=== PATIENT | male | born 1985 | race Caucasian/White ===

== ENCOUNTER 2019-01-08 06:56 | Inpatient (IN) | payer OTHER ==
[~2019-01-08 06:56] MED LIST: CEFAZOLIN SODIUM IN 0.9 % NACL 2 GM/100 ML BAG IV ONE
--- NOTE | 2019-01-08 07:22 | ANESTHESIA ---
Pre-Anesthesia VS, & Labs - Diagnosis L elbow cubital tunnel syndrome - Procedure L cubital tunnel release and transposition Vital Signs: Temp Pulse Resp BP Pulse Ox 36.6 C 86 17 140/89 H 100 01/08/19 07:00 01/08/19 07:00 01/08/19 07:00 01/08/19 07:00 01/08/19 07:00 Height 5 ft 8 in Weight (kg) 68.04 kg - NPO >8 hours Home Medications and Allergies Home Medications: Ambulatory Orders No Known Home Medications 01/05/19 No Known Home Medications 01/05/19 Allergies/Adverse Reactions: Allergies Allergy/AdvReac Type Severity Reaction Status Date / Time No Known Drug Allergies Allergy Verified 01/05/19 13:49 Anes History & Medical History - Anesthetic History Anesthesia Complications: reports: No previous complications Family history of Anesthesia Complications: Denies Family history of Malignant Hyperthermia: Denies - Medical History Cardiovascular: reports: None Pulmonary: reports: None Gastrointestinal: reports: None Urinary: reports: None Musculoskeletal: reports: Other Endocrine/Autoimmune: reports: None Skin: reports: None Exam General: Alert, Oriented x3, Cooperative Dental: WNL Mouth Openin Fingerbreadth Neck Mobility: Normal Mallampati classification: II Thyromental Distance: less than 4 cm Respiratory: Lungs clear, Normal breath sounds, No respiratory distress Cardiovascular: Regular rate Neurological: Normal speech Mental/Cognitive Status: Alert/Oriented X3, Normal for patient Cognitive Status: Within normal limits Plan Anesthesia Type: General Consent for Procedure(s) Verified and Reviewed: Yes Code Status: Attempt Resuscitation ASA classification: 1-Healthy patient Is this case an emergency?: No
[2019-01-08] MEDS ORDERED: LACTATED RINGERS 1,000 ML IV ONE ×2 (07:24→11:49)
[2019-01-08] MEDS ORDERED: LIDOCAINE-MPF 2% 5 ML VIAL IM ONE (08:15)
[2019-01-08] MEDS ORDERED: PROPOFOL 200 MG/20 ML VIAL IVP ONE (08:15)
[2019-01-08] MEDS ORDERED: fentaNYL 100 MCG/2 ML VIAL IVP ONE (08:15)
[2019-01-08] MEDS ORDERED: ACETAMINOPHEN 1,000 MG/100 ML 100 ML IV ONE (08:15)
[2019-01-08] MEDS ORDERED: DEXAMETHASONE 4 MG/ML VIAL IVP ONE (08:15)
[2019-01-08] MEDS ORDERED: KETOROLAC 30 MG/ML VIAL IVP ONE (08:15)
[2019-01-08] MEDS ORDERED: ONDANSETRON 4 MG/2 ML VIAL IVP ONE (08:15)
[2019-01-08] MEDS ORDERED: MIDAZOLAM 2 MG/2 ML VIAL IVP ONE (08:15)
[2019-01-08] MEDS: BUPIVACAINE 0.25% PF 30 ML VIAL ONE ×3 (08:24→11:28)
[2019-01-08] MEDS ORDERED: oxyCODONE 5 MG TABLET PO PRN (12:06)
--- NOTE | 2019-01-08 12:21 | OPERATIVE REPORT ---
Operative Report - General Procedure Date: 01/08/19 Planned Procedure: LeftUlnar nerve decompression and anterior transposition Pre-Op Diagnosis: Left cubital tunnel syndrome Procedure Performed: Left ulnar nerve decompression and anterior intramuscular transposition Post Op Diagnosis: Left cubital tunnel syndrome - Procedure Note Primary Surgeon: LINDA GUAJARDO Secondary Surgeon: TRACY BETHEA Anesthesia Provider: ABY Estimated Blood Loss (mL): 50 - Other Other Information/Narrative: Tourniquet Time: 130 minutes at 250mmHg. Specimen(s) Information: None Complication(s): None Condition: Stable to recovery Indications for Surgery: The patient is a 33-year-old right hand dominant male who was evaluated September 2018 for recent onset severe left elbow pain with radiation down the forearm and into the ulnar 2 digits. 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 He had decreased strength in his FCU as well as dorsal interosseous . He had clinical muscle atrophy of both the hypothenar eminence and first webspace. He had a positive Tinel at the ulnar nerve both proximal and distal to the medial epicondyle. The nerve felt like it subluxed with elbow flexion. Due to the constellation of presenting symptoms, and the reported acuity of onset there was concern for a potential centrally mediated process such as transverse myelitis or multiple sclerosis, as well as metabolic abnormalities. Lab work was unremarkable, and initial work-up consisted of MRI brain and C-spine, (negative for causal etiology), EMG/NCS (ulnar nerve lesion at the left elbow with motor conduction velocity across the elbow decreased to 19 m/s, with positive sharp waves in the FCU at rest), as well as neurology evaluation (Essential Tremor). An MRI of the elbow was subsequently obtained without significant pathologic abnormalities identified in the ulnar nerve. Based on his symptoms, as well as the results of his EMG/NCS, we discussed treatment options for cubital tunnel syndrome. Nonoperative treatment consisting of splinting and elbow pad wear was discussed as well as operative treatment consisting of ulnar nerve decompression with likely anterior transposition. Based on his motor findings, clinical exam and EMG/NCS, I discussed my recommendation for operative treatment to first and foremost prevent further muscle denervation. We discussed that motor recovery following surgery can be variable. Risks of surgery were discussed to include bleeding, infection, postoperative elbow stiffness, failure to relieve symptoms, persistent pain, damage to nerves, vessels, tendons, ligaments, bone and cartilage and anesthesia complications to include medication side effects and allergic reactions and even . After discussion, they wished to proceed. Findings: Significant perineural adhesions approximately 3 cm proximal to the cubital t unnel continuing distally to approximately 1 cm distal to the cubital tunnel. Descriptions of Procedure: The patient was met in the Preoperative Holding Area, at which time preoperative paperwork was confirmed. The left elbow was signed. The patient was then brought to Main Operating Room, placed supine on the Operating Room table. General anesthesia was induced. The operative extremity was then prepped and draped over a hand table in the normal sterile fashion. A sterile well-padded tourniquet was placed on the proximal arm. A surgcial timeout was conducted to confirm the correct patient, correct extremity and correct procedure and to confirm that antibiotics (2gm cefazolin IV) had been administered within 30 minutes of incision time. The operative extremity was then exsanguinated with an Esmarch bandage and tourniquet inflated to 250mmHg. An approximately 14 cm longitudinal incision was made centered posterior to the tip of the medial epicondyle in line with the course of the ulnar nerve and the easily palpable medial intermuscular septum. The skin and dermis were sharply incised, followed by blunt dissection with tenotomy scissors through through a scant layer of subcutaneous fat. Care was taken to identify crossing branches of the medial cutaneous nerves. A large branch was identified which arborized into multiple smaller branches directly over the medial epicondyle. These were identified and protected and neurolysed within the subcutaneous layer to allow for improved excursion, and the main nerve was neurolysed proximally to the level of the basilic vein. The cutaneous nerves were protected with a vessel loop which was then used for gentle retraction to create a moving window. The ulnar nerve was easily visible just posterior to the medial intermuscular septum through the investing fascia. The fascia was carefully opened, and longitudinally divided proximally in line with the ulnar nerve and then distally to Ryan's ligament. Ryan's ligament overlying the cubital tunnel was sharply incised, and the fascial release was continued distally into the leading edge of the FCU fascia. There was an approximately 3 cm segment of dense adhesions between the ulnar nerve and the surrounding tissue in the vicinity of the medial epicondyle that was released. Following release, the elbow was put through range of motion and the nerve was observed to subluxate and perch on the posterior edge of the medial epicondyle with elbow flexion. An anterior flap was developed by dissection just superficial to the flexor pronator fascia. Once the flexor pronator fascia had been exposed, we then marked out our planned fascial incisions utilizing 3 parallel lines (at the leading edge, at the level of the previously released FCU fascia, and equi distant between the 2 other lines. We sharply incised the fascia to create two flaps. Our proximal flap was cut proximally and elevated distally, and our distal flap was cut distally and elevated proximally. Intramuscular fascial septa were identified, isolated and resected, and the muscle was gently elevated from the medial epicondyle (from proximal to distal to prevent denervation) using bipolar electrocautery to create a trough for the anterior transposition. The proximal medial intermuscular septum was identified, dissected free and an approximately 6 cm segment was resected under direct visualization. An Army- Coburn was placed in the proximal incision and the ulnar nerve was released proximally under direct visualization from the overlying fascia. Digital palpation did not demonstrate any compression points. We then turned our attention distally and neurolysed the ulnar nerve within the FCU muscle belly to allow for improved excursion. The ulnar nerve was then gently circumferentially dissected and mobilized. The first branch to the elbow capsule was identified and internally neurolysed to allow improved excursion. We also performed an internal neurolysis of the first motor branch to the FCU. Once this had been performed the ulnar nerve was transposed anterior to the medial epicondyle into the previously created groove. The course of the nerve was checked visually and with palpation, and found to lie flat, without any tenting or kinking. There was no tension on any of the branches. There were no areas identified where the nerve traversed a sharp fascial edge. The tourniquet was let down and manual pressure was held for approximately 5 minutes. We further used bipolar electrocautery for hemostasis. An Army Coburn retractor was placed proximally and the nerve was visualized and examined with digital palpation. There were no additional constrictive points identified. The 2 previously created fascial flaps of the flexor/pronator fascia were then pas sed over the ulnar nerve, but under the cutaneous nerves and secured with 2-0 Ethibond to create a sling to prevent posterior subluxation of the nerve . After this sling had been secured, it was easy to pass a finger underneath the sling with the ulnar nerve. No new points of compression were created. The arm was again taken through full range of motion and the ulnar nerve was noted to be free of tension, with good gliding. The course of the nerve was again palpated. The wound was then copiously irrigated and bipolar electrocautery was again used for hemostasis. The subcutaneous tissue was closed using 2-0 Vicryl in interrupted fashion, followed by a running subcuticular 3-0 monocryl. Mastisol and steristrips were applied and 30mL of 0.25% marcaine plain was infiltrated into the nathalie-incisional soft tissues. The wound was dressed with Xeroform, plain 4x4 gauze, followed by webril, pound cotton, and a gently compressive webril. A posterior plaster splint was applied in approx 60 degrees of flexion and slight pronation. This was overwrapped with webril and an Donovan wrap. The patient was then awakened from general anesthesia without complication, brought to the Post Anesthesia Care for further recovery. Postoperative Plan: 1. The patient will be discharged from the Same Day Surgery Unit when discharge criteria are met. 2. The patient will remain in his splint until follow-up, this will be removed in clinic in 4 days on Saturday 3. Patient can start gentle elbow range of motion once the splint is removed next Saturday, to facilitate nerve gliding. 4. Possible return to full duty in 8-12 weeks.
[2019-01-08] MEDS: HYDROmorphone 0.5 MG/0.5 ML SYRINGE ONE ×2 (12:23→12:30)
[2019-01-08] MEDS: fentaNYL 100 MCG/2 ML VIAL ONE ×2 (12:28→12:35)
[2019-01-08] MEDS ORDERED: oxyCODONE 5 MG TABLET ONE ×2 (12:59→13:16)
[2019-01-08] MEDS ORDERED: ONDANSETRON 4 MG/2 ML VIAL IVP PRN (15:18)
--- NOTE | 2019-01-08 15:41 | PROVIDER PROGRESS NOTE ---
Subjective - Prog Note Date Prog Note Date: 01/08/19 Prog Note Time: 15:36 - Subjective Subjective: 33-year-old male postop day 0 from left ulnar nerve decompression with anterior intramuscular transposition. In the immediate postoperative period he had significant increased pain to the left forearm, elbow and hand. It was marginally responsive to narcotics, but recurred very quickly. He underwent a rescue regional nerve block administered by anesthesia with some improvement in symptoms. His splint was taken down to the base layer of webril and the forearm was palpated. His compartments were soft and compressible, no palpable hematoma or fluid collection was appreciated. A bulky soft splint without plaster was then reapplied to the forearm. During the Splint change he reported a significant increase in his pain from the post block levels. Based on his brittle pain control, to the point of tears, I recommended that he remain in the hospital overnight to allow for more close observation and better pain control. The patient was in agreement with the proposed plan. Objective - Vital Signs/Intake & Output Reviewed Vital Signs: Yes Vital Signs: Vital Signs x48h Temp Pulse Resp BP Pulse Ox 01/08/19 14:30 36.9 C 97 16 135/84 H 99 01/08/19 14:00 36.8 C 98 16 150/94 H 95 01/08/19 13:45 101 H 16 145/92 H 95 01/08/19 13:40 36.8 C 103 H 19 145/94 H 95 01/08/19 13:30 37 C 105 H 20 136/84 H 95 01/08/19 13:15 37 C 110 H 20 148/90 H 96 01/08/19 13:00 36.9 C 87 20 131/80 H 98 01/08/19 12:45 36.9 C 102 H 22 131/86 H 98 01/08/19 12:40 87 20 134/86 H 94 01/08/19 12:35 95 24 134/82 H 97 01/08/19 12:30 108 H 24 138/91 H 96 01/08/19 12:25 108 H 24 135/91 H 97 01/08/19 12:20 37.2 C 108 H 22 133/94 H 97 01/08/19 12:15 37.2 C 104 H 12 139/80 H 95 01/08/19 12:10 37.5 C 103 H 12 134/77 H 95 01/08/19 12:05 105 H 12 136/79 H 98 01/08/19 12:00 37.2 C 104 H 12 96 01/08/19 11:55 103 H 12 136/89 H 98 01/08/19 11:50 105 H 12 134/83 H 98 01/08/19 11:49 37.2 C 110 H 18 145/75 H 98 Intake & Output: Intake & Output 01/05/19 01/06/19 01/07/19 01/08/19 23:59 23:59 23:59 23:59 Intake Total 1400 Output Total 50 Balance 1350 - Objective General Appearance: positive: Moderate distress Extremities: positive: Other (Splint taken down to Base layer of Webril. No strikethrough observed. Forearm compartments soft and compressible. No palpable fluid collection or hematoma appreciated. Additional webril, bulky Florian cotton, webril and an Donovan bandage reapplied for gentle compression. No plaster applied.) Assessment/Plan - Problem List (1) Postoperative pain of extremity Impression: 33-year-old male postop day 0 from a left ulnar nerve decompression and anterior intramuscular transposition. He is having significant postoperative pain, marginally responsive to block as well as narcotics. Splint was taken down in the forearm and distal arm examined, compartments were soft and compressible.. There was no hematoma appreciated. A bulky soft splint was reapplied. [id number] keep for continued observation and availability of IV pain medication. Anticipate that he should be able to discharge tomorrow morning.
[2019-01-08] MEDS: ACETAMINOPHEN 500 MG TABLET PO SCH (16:02)
[2019-01-08] MEDS: HYDROmorphone 0.5 MG/0.5 ML SYRINGE IVP PRN ×2 (16:03→22:01)
[2019-01-08] MEDS ORDERED: SODIUM CHLORIDE FLUSH 0.9% 10 ML SYRINGE ONE ×3 (16:04→22:07)
[2019-01-08] MEDS: ONDANSETRON 4 MG/2 ML VIAL IVP PRN (16:11)
[2019-01-08] MEDS ORDERED: GABAPENTIN 300 MG CAPSULE PO SCH (21:00)
[2019-01-08] MEDS: oxyCODONE 5 MG TABLET PO PRN (22:01)
[2019-01-08] MEDS: IBUPROFEN 800 MG TABLET PO SCH (22:01)
[2019-01-09] MEDS: HYDROmorphone 0.5 MG/0.5 ML SYRINGE IVP PRN ×4 (00:24→07:07)
[2019-01-09] MEDS: ACETAMINOPHEN 500 MG TABLET PO SCH ×3 (00:25→16:19)
[2019-01-09] MEDS: ONDANSETRON 4 MG/2 ML VIAL IVP PRN ×3 (00:32→10:49)
[2019-01-09] MEDS ORDERED: SODIUM CHLORIDE FLUSH 0.9% 10 ML SYRINGE ONE ×6 (02:22→11:11)
[2019-01-09] MEDS: oxyCODONE 5 MG TABLET PO PRN ×2 (02:26→06:26)
[2019-01-09] MEDS: IBUPROFEN 800 MG TABLET PO SCH ×3 (05:03→22:04)
--- NOTE | 2019-01-09 08:05 | PROVIDER PROGRESS NOTE ---
Subjective - Prog Note Date Prog Note Date: 01/09/19 Prog Note Time: 08:03 - Subjective Pt reports feeling: No change Subjective: Postop day 1 status post left ulnar nerve decompression and anterior intramuscular transposition. The patient hSevere pain in the PACU, and received a regional block from anesthesia with moderate improvement in his symptoms. Based on his pain, the patient was kept overnight for observation and pain control. This morning he reports ongoing pain to the medial elbow and down into the forearm, described mostly as a throbbing, which he rates a 5 out of 10, but in tears.He received Neurontin 300 mg last evening, oxycodone 10 mg every 4 hours, and is still requiring Dilaudid for breakthrough pain. He is receiving 1000 mg of acetaminophen and 800 mg of ibuprofen every 8 hours for nonnarcotic pain modulation. Current Medications - Current Medications Current Medications: Medications Summary Acetaminophen (Tylenol) 1,000 mg PO Q8H [facility] Last Admin: 01/09/19 00:25 Dose: 1,000 mg Acetaminophen Assessment Document 01/09/19 00:25 MW (Rec: 01/09/19 00:25 MW [id number]) Pain or Fever Assessment Pain Scale Used 0-10 Pain Intensity (0-10) 7 Gabapentin (Neurontin) 300 mg PO QPM [facility] Last Admin: 01/08/19 22:01 Dose: 300 mg Hydromorphone HCl (Dilaudid Inj Syringe) 0.5 mg IVP Q2H PRN PRN Reason: Breakthrough Pain Last Admin: 01/09/19 07:07 Dose: 0.5 mg Pain Assessment Document 01/09/19 07:07 MW (Rec: 01/09/19 07:08 MW [id number]) Pain Level Pain Scale Used 0-10 Intensity (0-10) 6 Ibuprofen (Motrin) 800 mg PO TID [facility] Last Admin: 01/09/19 05:03 Dose: 800 mg Pain Assessment Document 01/09/19 05:03 MW (Rec: 01/09/19 05:04 MW [id number]) Pain Level Pain Scale Used 0-10 Intensity (0-10) 6 Ondansetron HCl (Zofran Inj) 4 mg IVP Q6HR PRN PRN Reason: Nausea / Vomiting Last Admin: 01/09/19 05:18 Dose: 4 mg Re-Assess: General PRN Medication Reasses Document 01/09/19 05:48 MW (Rec: 01/09/19 07:05 MW [id number]) Reassessment Effective/Ineffective Effective Oxycodone HCl (Roxicodone) 0 mg PO Q4HR PRN PRN Reason: PAIN Last Admin: 01/09/19 06:26 Dose: 10 mg Pain Assessment Document 01/09/19 06:26 MW (Rec: 01/09/19 06:27 MW [id number]) Pain Level Pain Scale Used 0-10 Intensity (0-10) 5 Objective - Vital Signs/Intake & Output Reviewed Vital Signs: Yes Vital Signs: Vital Signs x48h Temp Pulse Resp BP Pulse Ox 01/09/19 08:00 37 C 68 16 132/64 H 98 01/09/19 04:40 36.7 C 57 L 16 122/66 96 01/09/19 00:10 37.0 C 74 16 129/76 95 Intake & Output: Intake & Output 01/06/19 01/07/19 01/08/19 01/09/19 23:59 23:59 23:59 23:59 Intake Total 1850 400 Output Total 50 0 Balance 1800 400 - Objective General Appearance: positive: Moderate distress Eyes Bilateral: positive: Normal inspection, Other (Tearful) Neck: positive: Nml inspection Respiratory: positive: No respiratory distress Extremities: positive: Other (Left upper extremity postoperative splint in place. Good cap refill to all fingers, hand warm and well-perfused. He is able to flex and extend the digits, he reports Return of sensation to the fingers, and numbness and tingling into the ring and small finger, stable from preop.) Neurologic/Psychiatric: positive: Oriented x3 Assessment/Plan - Problem List (1) Postoperative pain of extremity Impression: 33-year-old male postop day 1 status post left anterior intramuscular ulnar nerve transposition, postop course complicated by severe pain, requiring continued IV narcotics. Based on his examination this morning, I plan to uptitrate his oral medications in an attempt to wean him off the IV back pain medications: he may require addition of a long-acting narcotic, however initially my plan would be to increase him to 15 mg of oxycodone every 4 hours. Based on his current pain control, I am not comfortable that he can be safely discharged home as he still requiring IV narcotics. He may require an additional 24-48 hours to optimize his oral regimen before he is safe to discharge. I have discussed him with the hospitalist service.
[2019-01-09] MEDS ORDERED: oxyCODONE 5 MG TABLET PO PRN (08:15)
[2019-01-09] MEDS: ASCORBIC ACID CHEW 500 MG TABLET PO SCH ×2 (08:15→20:46)
[2019-01-09] MEDS ORDERED: HYDROmorphone 0.5 MG/0.5 ML SYRINGE IVP PRN (08:27)
--- NOTE | 2019-01-09 08:27 | CONSULTATION NOTE ---
Referring Provider Name of Referring Provider:: Dr. Edson Sarkar Consult Date: 01/09/19 Chief Complaint - Chief Complaint Chief Complaint: Acute cubital tunnel syndrome History of Present Illness - Admitted From Admitted From:: Direct admit - History Obtained From Records Reviewed: Yes History obtained from: Patient and records Exam Limitations: None - History of Present Illness HPI Comment/Other: This is a pleasant 33-year-old male with status who was a direct admit by Dr. Edson Sarkar who presented with acute cubital tunnel syndrome, Diagnosed with an abnormal EMG of 19 m/s and clinical symptomatology requiring anterior intramuscular transposition and nerve manipulation with left ulnar decompression postop day #1. Patient has received several narcotic and nonnarcotic pain regimen with continued pain 5-6 out of 10 with patient being in "tears". Patient denies chest pain, shortness of breath, nausea vomiting, macopapular rashes, GI or symptoms. Hospitalist consultation has been requested for pain control management and to see if patient will need to stay an additional 24 to 48 hours for adequate pain control prior to discharge. Currently patient is on Neurontin 300 mg p.o. every afternoon, oxycodone 10 to 50 mg p.o. every 4 as needed, IV Dilaudid 0.5 mg IV every 2 hours for breakthrough pain, has received IV Tylenol 1 g q8hrs combined with ibuprofen 800 mg p.o. 3 times daily, Given 1 dose of IV Toradol, and with continued pain to the left forearm. Patient is hemodynamically stable, afebrile and blood pressure somewhat in the high normal range with bradycardia however may be pain induced, patient complaining of nausea in the cessation of throwing up but no actual emesis. History - Past Medical History Cardiovascular: reports: None Respiratory: reports: None Endocrine/Autoimmune: reports: None GI: reports: None : reports: None HEENT: reports: Other Psych: reports: None Musculoskeletal: reports: Other Derm: reports: None MRSA Hx?: No Meds/Allgy - Home Medications Home Medications: Ambulatory Orders Medication Instructions Recorded Confirmed No Known Home Medications 01/05/19 01/05/19 - Allergies Allergies/Adverse Reactions: Allergies Allergy/AdvReac Type Severity Reaction Status Date / Time No Known Drug Allergies Allergy Verified 01/05/19 13:49 Review of Systems - All Other Systems All Other Systems: reports: Reviewed and negative Exam - Vital Signs Vital Signs: Vital Signs x48h Temp Pulse Resp BP Pulse Ox 01/09/19 08:00 37 C 68 16 132/64 H 98 01/09/19 04:40 36.7 C 57 L 16 122/66 96 - Physical Exam General Appearance: positive: No acute distress, Alert, Mild distress Eyes Bilateral: positive: Normal inspection, PERRL, EOMI ENT: positive: ENT inspection nml, Pharynx nml, No signs of dehydration Neck: positive: Nml inspection, Thyroid nml, No JVD, Trachea midline. negative: Thyromegaly Respiratory: positive: Chest non-tender, No respiratory distress, Breath sounds nml Cardiovascular: positive: Regular rate & rhythm, No murmur, No gallop. negative: JVD present Peripheral Pulses: positive: 2+ Abdomen: positive: Non-tender, No organomegaly, Nml bowel sounds, No distention. negative: Tenderness Skin: positive: Color nml, No rash. negative: Cyanosis, Decubitus, Laceration (cm), Puncture wound, Embolic lesions Extremities: positive: Full ROM Neurologic/Psychiatric: positive: Oriented x3, CN's nml (2-12) Conclusion/Plan - Diagnosis Diagnosis: 1. Acute cubital tunnel syndrome to the left arm status post left ulnar decompression with anterior intramuscular transposition and nerve manipulation, postop day #1. 2. Intractable pain unresponsive to narcotic/nonnarcotic regimens. 3. Acute opiate induced nausea without emesis - Plan Plan: Patient currently receiving nonnarcotic as well as narcotic regimen for pain control. Still patient pain is 5-6/10 and unclear of pain threshold however patient is clearly opiate mart as patient does not have a history of chronic pain syndrome or any prior musculoskeletal or neuralgia type syndromes. Medical consultation has been requested for pain control and if patient requires an additional 24 to 48 hours of hospital stay in order to better control patient's pain. I would recommend to uptitrate Neurontin to 300 mg p.o. 3 times daily along with switching narcotic regimen to oxycodone ER 10 mg p.o. twice daily along with spacing the breakthrough pain with Dilaudid 0.5 mg IV every 4 as needed. Eventually wean off Dilaudid and main regimens are to have Neurontin plus oxycodone ER plus NSAIDs for anti-inflammatory properties. Antiemetics and supportive care to continue. Narcotics likely producing nausea. Will place on IV Compazine plus or minus Phenergan to augment Antiemetics, patient already on Zofran. - Lab Results Lab results reviewed: Yes - EKG Results EKG Interpreted Independently: No
[2019-01-09] MEDS: oxyCODONE ER 10 MG TABLET PO SCH ×2 (11:25→20:46)
[2019-01-09] MEDS ORDERED: PROMETHAZINE 25 MG TABLET PO PRN (11:43)
[2019-01-09] MEDS ORDERED: PROCHLORPERAZINE 10 MG/2 ML VIAL IVP PRN (11:43)
[2019-01-09] MEDS ORDERED: SODIUM CHLORIDE FLUSH 0.9% 10 ML SYRINGE IVP PRN (14:10)
[2019-01-09] MEDS: GABAPENTIN 300 MG CAPSULE PO SCH ×2 (14:12→22:03)
[2019-01-10] MEDS: ACETAMINOPHEN 500 MG TABLET PO SCH ×2 (00:10→08:06)
[2019-01-10] MEDS: IBUPROFEN 800 MG TABLET PO SCH (05:15)
[2019-01-10] MEDS: GABAPENTIN 300 MG CAPSULE PO SCH (05:15)
[2019-01-10] MEDS: ASCORBIC ACID CHEW 500 MG TABLET PO SCH (08:06)
[2019-01-10] MEDS: oxyCODONE ER 10 MG TABLET PO SCH (08:06)
[2019-01-10] MEDS ORDERED: POLYETHYLENE GLYCOL 3350 17 GM PACKET PO SCH (09:00)
[2019-01-10] MEDS ORDERED: SENNA 8.6 MG TABLET PO SCH (09:00)
--- NOTE | 2019-01-10 09:00 | PROVIDER PROGRESS NOTE ---
Subjective - General Admit Date: 01/09/19 Procedure Date: 01/08/19 Post Op Days: 2 Procedure Performed: Left ulnar nerve decompression and anterior intramuscular transposition - Review of Systems Wound/Incisions: positive: Dressing dry and intact General: positive: Other (Pain significantly improved over last 24h on new medication regimen). negative: Fever, Chills Pulmonary: negative: Shortness of breath Cardiovascular: negative: Chest pain Gastrointestinal: negative: Nausea (Nausea improved/resolved since medication change) Musculoskeletal: positive: Other (Numbness/tingling in ulnar distribution. Stable since pre-op) Skin: negative: No symptoms Psychiatric: negative: Confusion All Other Systems: positive: Reviewed and negative Objective - Patient Data Vital Signs: Vital Signs x48h Temp Pulse Resp BP Pulse Ox 01/10/19 08:00 36.9 C 68 16 118/67 98 01/10/19 04:28 36.8 C 54 L 16 114/61 95 Intake & Output: Intake and Output Totals x24h 01/08/19 01/09/19 01/10/19 23:59 23:59 23:59 Intake Total 1850 1700 520 Output Total 50 450 250 Balance 1800 1250 270 - Current Medications Current Medications: Current Medications Generic Name Dose Route Start Last Admin Trade Name Freq PRN Reason Stop Dose Admin Acetaminophen 1,000 mg 01/08/19 16:00 01/10/19 08:06 Tylenol PO 1,000 mg Q8H MARIE Administration Ascorbic Acid 500 mg 01/09/19 09:00 01/10/19 08:06 Vitamin C PO 500 mg BID MARIE Administration Gabapentin 300 mg 01/09/19 14:00 01/10/19 05:15 Neurontin PO 300 mg TID MARIE Administration Hydromorphone HCl 0.5 mg 01/09/19 08:27 01/09/19 11:05 Dilaudid Inj Syringe IVP 0.5 mg Q4H PRN Administration Breakthrough Pain Ibuprofen 800 mg 01/08/19 22:00 01/10/19 05:15 Motrin PO 800 mg TID MARIE Administration Ondansetron HCl 4 mg 01/08/19 12:06 01/09/19 10:49 Zofran Inj IVP 4 mg Q6HR PRN Administration Nausea / Vomiting Oxycodone HCl 10 mg 01/09/19 09:00 06/15/19 08:06 Oxycontin PO 10 mg BID MARIE Administration Polyethylene Glycol 17 gm 01/10/19 09:00 01/10/19 08:06 Miralax PO 17 gm DAILY MARIE Administration Prochlorperazine Edisylate 10 mg 01/09/19 11:43 01/09/19 13:37 Compazine Inj IVP 10 mg Q4HR PRN Administration Nausea / Vomiting Senna 8.6 - 17.2 mg 01/10/19 09:00 01/10/19 08:06 Senokot PO 17.2 mg DAILY MARIE Administration Sodium Chloride 10 ml 01/09/19 14:10 01/10/19 08:07 Normal Saline Flush 0.9% IVP 10 ml PRN PRN Administration NEEDED PER PROVIDER ORDERS - Physical Exam Wound/Incisions: positive: Dressing dry and intact General Appearance: positive: No acute distress Eyes Bilateral: positive: Normal inspection Neck: positive: Nml inspection Respiratory: positive: No respiratory distress Skin: positive: Color nml (To distal fingers LUE) Extremities: positive: Other (Left Upper extremity: - Insp: Post-op bulky dressing intact. No strikethrough. Sens: SILT median and SBRN, sensate with parestheisas to ulnar distribution. Motor: Intact AIN, PIN, ULN (FLP, EPL, IO). Can flex and extend fingers. Vasc: Fingers/hand warm and well perfused. Cap refill <2sec.) Neurologic/Psychiatric: positive: Oriented x3, Mood/affect nml. negative: Slurred/abnml speech Impression/Plan - Problem List Problem List: 1. 33yo M POD#2 s/p L ulnar neve decompression and anteriorintramuscular transposition. Pain greatly improved over last 24h, appreciate hospitalist service evaluation and medication modification/recommendations. No IV pain medication since 1100 yesterday. Nausea improved/resolved, no medications required since yesterday. Patient rates current pain 3/10 and manageable on current regimen. Vital signs stable and normal. He feels comfortable discharging. Plan: 1) Discharge to home 2) Medications: Due to the changes in his medications while inpatient, he will need new prescriptions on discharge. I have discussed this with the Hospitalist service, they have graciously agreed to write for them: He already has: Acetaminophen 325mg - Take 3 tab by mouth every 8 hours Zofran 4mg ODT - Dissolve 1 tab in mouth every 8 hours as needed for nausea Docusate Calcium 240mg - 1 cap by mouth daily I am discontinuing: Discontinue: Oxycodone IR 5mg 1-2 tab by mouth every 4 hours Discontinue: Ibuprofen 600mg 1 tab by mouth every 8 hours He needs new prescriptions for: Oxycodone ER 10mg: Take 1 tab by mouth every 12 hours Gabapentin 300mg: Take 1 tab by mouth every 8 hours Ibuprofen 800mg: Take 1 tab by mouth every 8 hours Miralax 3) Follow-up: He has scheduled follow-up at the [facility] on Saturday. LINDA Sarkar MD [phone] (cell) [phone] (clinic)
--- NOTE | 2019-01-10 09:03 | Discharge Plan ---
Discharge Plan Disposition: Home, Self Care Condition: Good Prescriptions: Gabapentin [Neurontin] 300 mg PO TID 7 Days #21 capsule Ibuprofen [Motrin] 800 mg PO TID 7 Days #21 tablet oxyCODONE ER [OxyCONTIN] 10 mg PO BID PRN 7 Days #20 tablet PRN Reason: Pain Polyethylene Glycol 3350 [Miralax] 17 gm PO DAILY PRN 7 Days #14 packet PRN Reason: Constipation Diet: Regular Activity Restrictions: Activity as Tolerated Shower Restrictions: No Driving Restrictions: No Instruction Topics: Cubital Tunnel Syndrome, Post Op Pain Manage Home Meds Additional Instructions or Follow Up instructions: You were admitted for an acute/subacute cubital tunnel syndrome which was diagnosed by your abnormal EMG performed by Dr. Thaddeus Sarkar. You had a p rocedure to decompress the left ulnar nerve as well as an intramuscular transposition procedure which caused severe inflammation and subsequently giving you much pain for which you needed to stay more than 24 hours. The regimen that you are currently on with ibuprofen, Neurontin, and oxycodone ER will be your primary pain management regimen. Please take all pain medications and nonsteroidal anti-inflammatory drugs as prescribed. He will be given 1 week's worth of these medications so please use the oxycodone as needed for extreme pain of more than 6-7 out of 10. You will likely have constipation related to narcotic use. He will also be prescribed MiraLAX to help you with improved bowel movements as the narcotics will cause this. In addition you will follow- up with Dr. Thaddeus Sarkar in approximately 1 week's time. If you would need a refill to your prescription he will go ahead and refill the prescriptions. In the meantime please follow all postoperative instructions provided for you by Dr. Thaddeus Sarkar. No Smoking: If you smoke, Please STOP! Call for help. Follow-up with: Edson Sarkar MD [Primary Care Provider] - 1 Week (Please follow-up with PCP in approximately 1 week's time or as scheduled)
--- NOTE | 2019-01-10 09:12 | DISCHARGE SUMMARY ---
Discharge Summary Admit Date: 01/08/19 Discharge Date: 01/10/19 Discharging Provider: Dr. Varghese Primary Care Provider: Dr. Thaddeus Sarkar Code Status: Attempt Resuscitation Condition at Discharge: Good Discharge Disposition: 01 Home, Self Care - DIAGNOSES Admission Diagnoses: 1. Acute cubital tunnel syndrome to the left arm status post left ulnar dec ompression with anterior intramuscular transposition and nerve manipulation, postop day #1. 2. Intractable pain unresponsive to narcotic/nonnarcotic regimens. 3. Acute opiate induced nausea without emesis Discharge Diagnoses with Status of Each Condition: 1. Acute cubital tunnel syndrome to the left arm status post left ulnar decompression with anterior intramuscular transposition and nerve manipulation, postop day #2, Stable 2. Intractable pain unresponsive to narcotic/nonnarcotic regimens. Improved 3. Acute opiate induced nausea without emesis, Resolved - HPI History of Present Illness: This is a pleasant 33-year-old male with status who was a direct admit by Dr. Edson Sarkar who presented with acute cubital tunnel syndrome, Diagnosed with an abnormal EMG of 19 m/s and clinical symptomatology requiring anterior intramuscular transposition and nerve manipulation with left ulnar decompression postop day #1. Patient has received several narcotic and nonnarcotic pain regimen with continued pain 5-6 out of 10 with patient being in "tears". Patient denies chest pain, shortness of breath, nausea vomiting, macopapular rashes, GI or symptoms. Hospitalist consultation has been requested for pain control management and to see if patient will need to stay an additional 24 to 48 hours for adequate pain control prior to discharge. Currently patient is on Neurontin 300 mg p.o. every afternoon, oxycodone 10 to 50 mg p.o. every 4 as needed, IV Dilaudid 0.5 mg IV every 2 hours for breakthrough pain, has received IV Tylenol 1 g q8hrs combined with ibuprofen 800 mg p.o. 3 times daily, Given 1 dose of IV Toradol, and with continued pain to the left forearm. Patient is hemodynamically stable, afebrile and blood pressure somewhat in the high normal range with bradycardia however may be pain induced, patient complaining of nausea in the cessation of throwing up but no actual emesis. - CONSULTS | PROCEDURES Consultations: Hospitalist service Procedures: Left ulnar decompression with intramuscular transposition, Postop day #2 - HOSPITAL COURSE Hospital Course: Mr. Jaylen Bauman is a pleasant 33-year-old male who was admitted by Dr. Edson Sarkar, who presented with an acute cubital tunnel syndrome diagnosed with an abnormal hamate EMG of 19 m per square and clinical symptomatology requiring anterior intramuscular transposition as well as left ulnar decompression. Hospitalist service was initially consulted for evaluation of pain management. Patient was subsequently needing more than 24-hour stay due to pain management requiring IV Dilaudid, IV Tylenol, ibuprofen, neurontin, and increasing amounts of oxycodone IR every 3-4 hours. Patient had been complaining of nausea on this regimen and was in "tears" with 6-7/10 pain with no related shortness of breath, some diaphoresis, without GI or symptoms. There was no maculopapular rashes, and patient did not have any evidence of compartmental syndrome postoperatively. Patient subsequently was placed on a acceptable pain management regimen to include ibuprofen 800 mg p.o. 3 times daily [id number], Neurontin was uptitrated to 300 mg p.o. 3 times daily, oxycodone IR was discontinued as well as IV Dilaudid spaced out to every 6, oxycodone ER 10 mg p.o. twice daily was instituted. Patient was cleared by orthopedic surgeon and would be followed up as an outpatient in about 1 week's time. Patient's pain is not controlled and he was hemodynamically stable, afebrile upon discharge. - ALLERGIES Allergies/Adverse Reactions: Allergies Allergy/AdvReac Type Severity Reaction Status Date / Time No Known Drug Allergies Allergy Verified 01/05/19 13:49 - MEDICATIONS Home Medications: Ambulatory Orders Medication Instructions Recorded Confirmed Gabapentin [Neurontin] 300 mg PO TID 7 Days #21 capsule 01/10/19 Ibuprofen [Motrin] 800 mg PO TID 7 Days #21 tablet 01/10/19 Polyethylene Glycol 3350 [Miralax] 17 gm PO DAILY PRN 7 Days #14 01/10/19 packet oxyCODONE ER [OxyCONTIN] 10 mg PO BID PRN 7 Days #20 tablet 01/10/19 - PHYSICAL EXAM AT DISCHARGE General Appearance: positive: No acute distress, Alert Eyes Bilateral: positive: Normal inspection, PERRL, EOMI ENT: positive: ENT inspection nml, Pharynx nml, No signs of dehydration Neck: positive: Nml inspection, Thyroid nml, No JVD, Trachea midline Respiratory: positive: Chest non-tender, No respiratory distress, Breath sounds nml Cardiovascular: positive: Regular rate & rhythm, No murmur, No gallop Peripheral Pulses: positive: 2+ Abdomen: positive: Non-tender, No organomegaly, Nml bowel sounds, No distention. negative: Tenderness Skin: positive: Color nml, No rash, Warm, Other (Patient with left mackenzie wrap bandages with no cyanotic digits) Extremities: positive: Nml appearance (Slightly addendum to his left upper extremity with surgical site clean dry and intact). negative: Joint swelling Neurologic/Psychiatric: positive: Oriented x3 - FOLLOW UP Follow Up: To follow-up with PCP in 1 or 2 weeks. - TIME SPENT Time Spent in Discharge (Minutes): 35
[2019-01-10 11:50] VITALS: BP 120/68
== END 2019-01-10 13:30 | disposition home or self-care (01) | DRG 941 ==
LOC: SDS 06:56 → MS2 15:51 → SDS 01-09 11:41 → MS2 01-09 11:42
PROVIDERS: ADMIT Family Medicine; ATTEND Family Medicine
PROC: 01N40ZZ Release Ulnar Nerve, Open Approach (ICD-10-PCS; principal; 2019-01-09)
PROC: 01S40ZZ Reposition Ulnar Nerve, Open Approach (ICD-10-PCS; 2019-01-09)
DX: G89.18 Other acute postprocedural pain (principal); G56.22 Lesion of ulnar nerve, left upper limb; R11.0 Nausea; T40.605A Adverse effect of unspecified narcotics, initial encounter; Y92.230 Patient room in hospital as the place of occurrence of the external cause
CPT/HCPCS: 64718; A9270; J0131; J0690; J1170; J7120; Q0169

== ENCOUNTER 2019-02-12 13:13 | Emergency (ER) | payer OTHER ==
--- NOTE | 2019-02-12 13:32 | ED Physician Documentation ---
History of Present Illness - Stated complaint Stated Complaint: ANXIETY - Chief complaint Chief Complaint: General - History obtained from History obtained from: Patient, Family - History of Present Illness Timing: Today Pain level max: 0 Pain level now: 0 - Additonal information Additional information: 33-year-old male states that he was at work today when he had a panic attack. [place] himself breathing fast, heart racing and tingling in his hands. This lasted approximately 10 minutes. He states that he feels better now. Is not on any medications for this. Patient is not suicidal or homicidal. Review of Systems Constitutional: denies: Fever, Chills Nose: denies: Rhinorrhea / runny nose, Congestion Throat: denies: Sore throat Cardiac: denies: Chest pain / pressure Respiratory: denies: Cough GI: denies: Vomiting, Diarrhea Skin: denies: Rash Musculoskeletal: denies: Neck pain, Back pain Neurologic: denies: Headache PD PAST MEDICAL HISTORY - Past Medical History Cardiovascular: None Respiratory: None Endocrine/Autoimmune: None GI: None : None HEENT: Other Psych: None Musculoskeletal: Other Derm: None - Present Medications Home Medications: Ambulatory Orders Medication Instructions Recorded Confirmed Gabapentin [Neurontin] 300 mg PO TID 7 Days #21 capsule 01/10/19 Ibuprofen [Motrin] 800 mg PO TID 7 Days #21 tablet 01/10/19 Polyethylene Glycol 3350 [Miralax] 17 gm PO DAILY PRN 7 Days #14 01/10/19 packet oxyCODONE ER [OxyCONTIN] 10 mg PO BID PRN 7 Days #20 tablet 01/10/19 - Allergies Allergies/Adverse Reactions: Allergies Allergy/AdvReac Type Severity Reaction Status Date / Time No Known Drug Allergies Allergy Verified 01/05/19 13:49 PD ED PE NORMAL - Vitals Vital signs reviewed: Yes - General General: Alert and oriented X 3, No acute distress, Well developed/nourished - HEENT HEENT: Moist mucous membranes - Neck Neck: Supple, no meningeal sign - Cardiac Cardiac: RRR, No murmur, Strong equal pulses - Respiratory Respiratory: No respiratory distress, Clear bilaterally - Abdomen Abdomen: Soft, Non tender, Non distended - Derm Derm: Warm and dry - Extremities Extremities: No edema, No calf tenderness / cord - Neuro Neuro: Alert and oriented X 3, lead handler 2-12 intact, No motor deficit, No sensory deficit, Normal speech Eye Opening: Spontaneous Motor: Obeys Commands Verbal: Oriented GCS Score: 15 - Psych Psych: Normal mood, Normal affect Results - Vitals Vitals: Vital Signs - 24 hr 02/12/19 02/12/19 13:14 14:25 Temperature 37.1 C 36.4 C L Heart Rate 81 68 Respiratory 16 20 Rate Blood Pressure 128/88 H 136/84 H O2 Saturation 100 100 Oxygen O2 Source Room air - EKG (time done) 1356 Rate: Rate (enter#) (78) Rhythm: NSR [place]: Normal Intervals: Normal MD QRS: Normal Ischemia: Normal ST segments - Labs Labs: Laboratory Tests 02/12/19 13:41 POC Whole Bld Glucose 101 H PD MEDICAL DECISION MAKING - ED course Complexity details: reviewed results, re-evaluated patient, considered differential, d/w patient ED course: 33-year-old male appears to have had a panic attack today. He is well- appearing, nontoxic. Afebrile. Normal blood sugar. Normal EKG. Asymptomatic now. We will follow-up with his doctor for further care. Patient counseled regarding signs and symptoms for which I believe and urgent re-evaluation would be necessary. Patient with good understanding of and agreement to plan and is comfortable going home at this time This document was made in part using voice recognition software. While efforts are made to proofread this document, sound alike and grammatical errors may occur. Patient is not suicidal, homicidal or having hallucinations. Departure - Departure Disposition: 01 Home, Self Care Clinical Impression: Panic attack Condition: Good Instructions: ED Panic Attack Follow-Up: your,doctor in 1 week [Other] Comments: Follow-up with your doctor for further care. Return if you worsen. Discharge Date/Time: 02/12/19 14:25
[2019-02-12 14:26] VITALS: BP 136/84
== END 2019-02-12 14:25 | disposition home or self-care (01) ==
LOC: ED 13:13
DX: F41.0 Panic disorder [episodic paroxysmal anxiety] (principal)
CPT/HCPCS: 93005; 99283; 99284

== ENCOUNTER 2019-06-05 09:33 | Emergency (ER) | payer OTHER ==
--- NOTE | 2019-06-05 10:03 | ED Physician Documentation ---
PD HPI ABD PAIN - Stated complaint Stated Complaint: ABD PX - Chief complaint Chief Complaint: Abd Pain - History obtained from History obtained from: Patient - History of Present Illness Timing - onset: Yesterday Timing - duration: Days (2) Timing - details: Abrupt onset Pain level max: 5 Pain level now: 3 Quality: Pain Location: Epigastric Radiation: Chest Associated symptoms: Nausea. No: Fever, Vomiting, Diarrhea, Dysuria, Hematuria, Dizzy Recently seen: Not recently seen - Additional information Additional information: There is a 34-year-old presents with complaints that he woke up yesterday morning with a little bit of stomach "upset". He said he did not think that much of it he thought he might just eaten something that made him to feel bad but now there is a constant pain that mostly around the periumbilical region but also more generalized and it made him feel short of breath. The pain is currently a 3 out of 10 yesterday was up to 4-5 out of 10. He tried taking Tums without relief. He is been nauseous but no vomiting or diarrhea. Denies any fever. No dysuria but he has had a minimal cough that he attributed to getting a flu shot last week. Patient has not drink any alcohol since November of this year. He has had no abdominal surgeries. He has not been around anyone has been ill or eaten anything for sure that he thinks may made him sick. He is in the [place]. Review of Systems Constitutional: denies: Fever Ears: denies: Ear pain Nose: denies: Congestion Throat: denies: Sore throat Cardiac: denies: Chest pain / pressure Respiratory: reports: Dyspnea, Cough (Minimal) GI: reports: Nausea. denies: Vomiting, Diarrhea : denies: Dysuria, Frequency Skin: denies: Rash Neurologic: denies: Generalized weakness, Syncope PD PAST MEDICAL HISTORY - Past Medical History Cardiovascular: None Respiratory: None Endocrine/Autoimmune: None GI: None : None HEENT: Other Psych: None Musculoskeletal: Other Derm: None - Present Medications Home Medications: Ambulatory Orders Medication Instructions Recorded Confirmed Gabapentin [Neurontin] 300 mg PO TID 7 Days #21 capsule 01/10/19 Ibuprofen [Motrin] 800 mg PO TID 7 Days #21 tablet 01/10/19 - Allergies Allergies/Adverse Reactions: Allergies Allergy/AdvReac Type Severity Reaction Status Date / Time No Known Drug Allergies Allergy Verified 06/05/19 09:42 PD ED PE NORMAL - Vitals Vital signs reviewed: Yes - General General: Alert and oriented X 3, No acute distress, Well developed/nourished, Other (Thin pleasant 34-year-old man) - HEENT HEENT: Atraumatic, Moist mucous membranes, Other (No scleral icterus) - Neck Neck: Thyroid normal - Cardiac Cardiac: RRR, No murmur - Respiratory Respiratory: No respiratory distress - Abdomen Abdomen: Normal bowel sounds, Soft, Non distended, No organomegaly, Other (Tender in the right upper and lower quadrants with guarding) - Derm Derm: Normal color, Warm and dry, No rash - Extremities Extremities: No edema - Neuro Neuro: Alert and oriented X 3, No motor deficit, No sensory deficit, Normal speech - Psych Psych: Normal mood, Normal affect Results - Vitals Vitals: Vital Signs - 24 hr 06/05/19 06/05/19 06/05/19 09:41 10:31 11:26 Temperature 36.8 C Heart Rate 76 81 80 Respiratory 16 18 18 Rate Blood Pressure 148/89 H 116/83 H 121/82 H O2 Saturation 99 99 100 Oxygen O2 Source Room air - Labs Labs: Laboratory Tests 06/05/19 06/05/19 06/05/19 10:13 10:14 10:14 WBC 4.4 L RBC 4.22 L Hgb 13.9 L Hct 39.2 L MCV 92.9 MCH 32.9 H MCHC 35.5 RDW 12.5 Plt Count 281 MPV 9.0 Neut # (Auto) 2.8 Lymph # (Auto) 1.0 L [place] # (Auto) 0.4 Eos # (Auto) 0.1 Baso # (Auto) 0.0 Absolute Nucleated RBC 0.00 Nucleated RBC % 0.0 Sodium 140 Potassium 4.1 Chloride 101 Carbon Dioxide 31 Anion Gap 8.0 BUN 19 Creatinine 0.9 Estimated GFR (MDRD) 98 Glucose 102 H Calcium 9.5 Total Bilirubin 0.9 AST 16 ALT 14 Alkaline Phosphatase 48 Total Protein 7.2 Albumin 4.5 Globulin 2.7 Albumin/Globulin Ratio 1.7 Lipase 27 Urine Color YELLOW Urine Clarity CLEAR Urine pH 7.5 Ur Specific [place] 1.015 Urine Protein NEGATIVE Urine Glucose (UA) NEGATIVE Urine Ketones NEGATIVE Urine Occult Blood NEGATIVE Urine Nitrite NEGATIVE Urine Bilirubin NEGATIVE Urine Urobilinogen 0.2 (NORMAL) Ur Leukocyte Esterase NEGATIVE Ur Microscopic Review NOT INDICATED Urine Culture Comments NOT INDICATED PD MEDICAL DECISION MAKING - ED course Complexity details: reviewed results, re-evaluated patient ED course: 1130: Patient had 4 morphine and 4 of Zofran IV. His white blood cell count is actually low at 4.4. Lipase is normal urine is negative. He still has some tenderness in the right lower quadrant with some guarding. I ordered CT scan abdomen pelvis with IV contrast. 1314: Ct neg for appendicitis. Results discussed with the patient. He is to be discharged with instructions to eat a bland diet. [place] the pain continues. Departure - Departure Disposition: Home, Self Care Clinical Impression: Abdominal pain Qualifiers: Abdominal location: right lower quadrant Qualified Code(s): R10.31 - Right lower quadrant pain Condition: Good Instructions: ED Abdominal Pain Unkn Cause Follow-Up: LIZA Gilbert [Provider Group] Comments: Eat a BRAT (bananas, rice, applesauce and toast) for the next 24 hours. Drink lots of water. Only Tylenol or ibuprofen if needed for pain. [place] if your pain continues over another 48 hours. Return if you have fever, or vomiting and cannot keep anything down or other problems arise.
[2019-06-05 10:22] LABS: BASOPHILS % (AUTO) 0.5 %; EOSINOPHILS # (AUTO) 0.1 10^3/uL (0.0-0.7); EOSINOPHILS % (AUTO) 1.4 %; HGB - HEMOGLOBIN 13.9 g/dL (14.0-18.0); LYMPHOCYTES % (AUTO) 23.5 %; MEAN CORPUSCULAR HEMOGLOBIN 32.9 pg (27.0-31.0); MEAN CORPUSCULAR HGB CONC 35.5 g/dL (32.0-36.0); MEAN CORPUSCULAR VOLUME 92.9 fL (80.0-94.0); MONOCYTES # (AUTO) 0.4 10^3/uL (0.0-1.0); MONOCYTES % (AUTO) 9.6 %; NEUTROPHILS # (AUTO) 2.8 10^3/uL (1.5-6.6); NEUTROPHILS % (AUTO) 64.8 %; PLT - PLATELET COUNT 281 10^3/uL (130-450); RED BLOOD COUNT 4.22 10^6/uL (4.70-6.10); RED CELL DISTRIBUTION WIDTH 12.5 % (12.0-15.0); WHITE BLOOD COUNT 4.4 x10^3/uL (4.8-10.8)
[2019-06-05] MEDS ORDERED: ONDANSETRON 4 MG/2 ML VIAL IVP STA (10:22)
[2019-06-05] MEDS ORDERED: MORPHINE 2 MG/ML CARPUJECT IVP STA (10:22)
[2019-06-05 10:35] LABS: ALBUMIN 4.5 g/dL (3.2-5.5); ALBUMIN/GLOBULIN RATIO 1.7 (1.0-2.2); BILIRUBIN,TOTAL 0.9 mg/dL (0.2-1.0); CALCIUM 9.5 mg/dL (8.5-10.3); CREATININE 0.9 mg/dL (0.6-1.2); TOTAL PROTEIN 7.2 g/dL (6.7-8.2)
[2019-06-05 10:45] LABS: BILIRUBIN,URINE NEGATIVE (NEGATIVE); GLUCOSE, URINE (UA) NEGATIVE (NEGATIVE); KETONES,URINE (UA) NEGATIVE (NEGATIVE); LEUKOCYTE ESTERASE, URINE NEGATIVE (NEGATIVE); NITRITE,URINE NEGATIVE (NEGATIVE); OCCULT BLOOD,URINE NEGATIVE (NEGATIVE); PH,URINE 7.5 PH (5.0-7.5); PROTEIN,URINE NEGATIVE (NEGATIVE); UROBILINOGEN,URINE 0.2 (NORMAL) E.U./dL (NORMAL)
[2019-06-05 10:49] LABS: CLARITY,URINE CLEAR (CLEAR)
[2019-06-05] MEDS ORDERED: IOVERSOL 320 100 ML VIAL IVP ONE ×2 (11:43→14:09)
--- NOTE | 2019-06-05 12:30 | CT Report ---
Reason: RLQ pain Procedure Date: 06/05/2019 Accession Number: [id number] / [id number] Procedure: CT - Abdomen/Pelvis W CPT Code: Final Report FULL RESULT: EXAM: CT ABDOMEN AND PELVIS WITH CONTRAST EXAM DATE: 06/05/2019 11:50 AM. CLINICAL HISTORY: RLQ pain for 24 hours in a 34-year-old male. COMPARISONS: None. TECHNIQUE: Emergent axial helical CT imaging was performed through the abdomen and pelvis. IV contrast: OPTI 320 90 mL. Enteric contrast: No. Reconstructions: Coronal and sagittal. In accordance with CT protocol optimization, one or more of the following dose reduction techniques were utilized for this exam: automated exposure control, adjustment of mA and/or KV based on patient size, or use of iterative reconstructive technique. FINDINGS: Lung Bases: Unremarkable. Liver: Normal. No masses. Gallbladder/Bile Ducts: Partially collapsed, likely secondary to non-NPO status. No gallstones, wall thickening or dilated bile ducts. Spleen: Normal. Pancreas: Normal. Adrenal Glands: Normal. Kidneys: Normal. No solid masses or hydronephrosis. Small benign-appearing 4.5 mm cyst inferior pole right kidney. Peritoneal Cavity/Bowel: Normal. No free fluid, free air or adenopathy. No masses or acute inflammatory process. The appendix is well visualized and normal. Pelvic Organs: Normal. The bladder and visualized pelvic organs are within normal limits. Vasculature: No aneurysms or other significant abnormality. Bones: Normal. Other: None. IMPRESSION: Normal contrast enhanced abdomen and pelvic CT scan. No CT findings suggesting appendicitis, gallstones or other abnormality. [facility]
[2019-06-05 13:29] VITALS: BP 129/77
== END 2019-06-05 13:29 | disposition home or self-care (01) ==
LOC: ED 09:33
DX: R10.31 Right lower quadrant pain (principal); R11.0 Nausea
CPT/HCPCS: 36415; 74177; 80053; 81003; 83690; 85025; 96374; 99283; 99284; Q9967; 81001; 87086

== ENCOUNTER 2020-04-16 08:10 | Emergency (ER) | payer OTHER ==
--- NOTE | 2020-04-16 08:45 | ED Physician Documentation ---
PD HPI UPPER EXT INJURY - Stated complaint Stated Complaint: L SHOULDER/ARM PX - Chief complaint Chief Complaint: Ext Problem - History obtained from History obtained from: Patient - History of Present Illness Location: Left, Shoulder, Elbow Type of injury: No: Fall, Twist (he is not aware of acute injury nor heavy lifting per se. Noted onset of left elbow and shoulder pain the past couple of days. This has caused his essential tremor to be worse in that arm particularly.), Blunt / blow Where injury occurred: Work Timing - onset: How many days ago (couple) Timing - duration: Days (since yesterday) Timing - details: Gradual onset, Still present Worsened by: Moving (hurts for moving left elbow and shoulder with feeling of pain upper scapular area, side of neck and down to left elbow (or more so feeling like up from left elbow, per patient). 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 No complications from that.). No: Palpating Associated symptoms: No: Weakness, Numbness Similar symptoms before: No diagnosis (has had pains at elbow intermittently. Current pain is much worse and persistent. Has not had the shoulder/scapular pains previously.) Recently seen: Not recently seen Review of Systems Constitutional: denies: Fever, Chills Nose: denies: Rhinorrhea / runny nose, Congestion Throat: denies: Sore throat Respiratory: denies: Cough Skin: denies: Rash, Lesions Neurologic: reports: Numbness (feeling numbness little finger at times. No edema nor swelling in hand/fingers. Denies discoloration of fingers.). denies: Focal weakness PD PAST MEDICAL HISTORY - Past Medical History Past Medical History: Yes Cardiovascular: None Respiratory: None Neuro: Other Endocrine/Autoimmune: None GI: None : None HEENT: Other Psych: None Musculoskeletal: Other Derm: None - Past Surgical History Past Surgical History: Yes - Present Medications Home Medications: Ambulatory Orders Medication Instructions Recorded Confirmed Gabapentin [Neurontin] 300 mg PO TID 7 Days #21 capsule 01/10/19 Ibuprofen [Motrin] 800 mg PO TID 7 Days #21 tablet 01/10/19 Hydrocodone/Acetaminophen [[place] 1 each PO Q6H PRN #15 tablet 04/16/20 5-325 Tablet] Naproxen 375 mg PO TID #30 tablet 04/16/20 Tizanidine HCl 4 mg PO TID PRN #25 capsule 04/16/20 - Allergies Allergies/Adverse Reactions: Allergies Allergy/AdvReac Type Severity Reaction Status Date / Time No Known Drug Allergies Allergy Verified 06/05/19 09:42 - Social History Does the pt smoke?: Yes Smoking Status: Current every day smoker Does the pt drink ETOH?: No Does the pt have substance abuse?: No - Immunizations Immunizations are current?: Yes PD ED PE NORMAL - Vitals Vital signs reviewed: Yes - General General: Alert and oriented X 3, No acute distress, Well developed/nourished - Neck Neck: Supple, no meningeal sign, No bony TTP (but has some tenderness left lateral muscles and to the suprascapular area. No redness nor rash. ), No adenopathy - Cardiac Cardiac: RRR, No murmur - Respiratory Respiratory: Clear bilaterally - Derm Derm: Normal color, Warm and dry - Extremities Extremities: Other (left shoulder itself is not tendcer. Able to move shoulder around (cross chest, behind back and abduction over shoulder height) without pain, so does not seem rotator cuff. Elbow medial with healed scar. No effusion. Locally tender though. ) Results - Vitals Vitals: Vital Signs - 24 hr 04/16/20 04/16/20 08:18 09:57 Temperature 36.3 C L 36.6 C Heart Rate 72 72 Respiratory 16 15 Rate Blood Pressure 130/96 H 128/94 H O2 Saturation 99 99 Oxygen O2 Source Room air - Rads (name of study) left elbow Radiology: Prelim report reviewed (no acute process), See rad report Departure - Departure Disposition: 01 Home, Self Care Clinical Impression: Left arm pain, Essential tremor Condition: Stable Record reviewed to determine appropriate education?: Yes Instructions: ED Strain Muscle Ext Follow-Up: Robert Pressley MD [Primary Care Provider] - Prescriptions: Naproxen 375 mg PO TID #30 tablet Hydrocodone/Acetaminophen [[place] 5-325 Tablet] 1 each PO Q6H PRN #15 tablet PRN Reason: Pain Tizanidine HCl 4 mg PO TID PRN #25 capsule PRN Reason: Spasms Comments: X-ray appears normal. I presume there is some muscle or nerve irritation through the elbow or shoulder. There does seem some muscular involvement in the scapular area. Use a sling for reduced motion and comfort through the day for the next 3 to 4 days. Progress use of the elbow and shoulder as tolerated. Anti-inflammatories with naproxen 2-3 times daily. Add tizanidine muscle relaxant. To that add Tylenol or hydrocodone as needed for pain. Follow-up with your primary care and orthopedics early this coming week, call Saturday for an appointment. Forms: Activity restrictions Discharge Date/Time: 04/16/20 10:27
[2020-04-16] MEDS ORDERED: methocarbamoL 500 MG TABLET PO STA (09:34)
[2020-04-16] MEDS ORDERED: ACETAMINOPHEN 325 MG TABLET PO STA (09:34)
[2020-04-16] MEDS ORDERED: KETOROLAC 30 MG/ML VIAL IM STA (09:35)
[2020-04-16 09:58] VITALS: BP 128/94
--- NOTE | 2020-04-16 10:01 | XRAY Report ---
PROCEDURE: Elbow 3 View LT INDICATIONS: Elbow pain last night; no injury; prior elbow surg TECHNIQUE: 3 views of the elbow were acquired. COMPARISON: None FINDINGS: Bones: No acute fractures or dislocations. There is trace osteophytosis of the trochlea with mild e lbow joint space narrowing. No suspicious bony lesions. Soft tissues: No elbow joint effusion. No suspicious soft tissue calcifications. IMPRESSION: No acute finding. Mild degenerative changes. Reviewed by: Tio Alarcon MD on 04/16/2020 10:00 AM PDT Approved by: Tio Alarcon MD on 04/16/2020 10:00 AM PDT Station ID: [id number]
== END 2020-04-16 10:27 | disposition home or self-care (01) ==
LOC: ED 08:10
DX: M79.602 Pain in left arm (principal); G25.0 Essential tremor; F17.200 Nicotine dependence, unspecified, uncomplicated
CPT/HCPCS: 73080; 96372; 99283; 99284; A9270

== ENCOUNTER 2020-05-02 08:59 | Outpatient (CLI) | payer OTHER ==
--- NOTE | 2020-05-02 11:03 | MRI Report ---
PROCEDURE: Cervical Spine W/O INDICATIONS: CERVICAL ROOT DISORDERS TECHNIQUE: Noncontrast sagittal T1 spin echo and T2 fast spin echo, sagittal STIR, foraminal oblique sagittal T2 fast spin echo, and axial gradient echo and T2 fast spin echo through the cervical spine. COMPARISON: Correlation is made with prior cervical spine CT, 04/24/2020 FINDINGS: Image quality: Motion artifact is noted. Alignment and Curvature: There is normal bony alignment. Bone Marrow: Marrow demonstrates normal overall signal. Spinal Cord: Visualized spinal cord has normal size and signal. No cerebellar tonsillar herniation. Paraspinous Soft Tissues: No paravertebral masses. Prevertebral soft tissues are normal in thicknes s. C2-C3: The disc height is well-preserved. There is loss of disc signal seen. Mild disc osteophyte complex is seen, which is eccentric to the left side. Mild facet hypertrophy is seen. There is moder ate left-sided and no significant right-sided neuroforaminal narrowing seen. The central canal is wi salma patent. C3-C4: The disc height is well-preserved. There is loss of disc signal seen. Mild to moderate disc osteophyte complex is seen, which is eccentric to the left. Moderate facet hypertrophy is seen, left worse than right. There is moderate to severe bilateral neuroforaminal narrowing seen, left worse rula n right. Mild central canal narrowing is seen. C4-C5: The disc height is well-preserved. There is loss of disc signal seen. Mild disc osteophyte complex is seen, which is eccentric to the right. There is moderate bilateral facet hypertrophy seen. There is moderate bilateral neuroforaminal narrowing seen. No significant central canal narrowing is seen. C5-C6: The disc height is well-preserved. There is loss of disc signal seen. Mild disc osteophyte c omplex is seen. Mild facet hypertrophy is seen. Mild to moderate facet hypertrophy is seen. Mild bilateral neural foraminal narrowing is seen. No significant central canal narrowing is seen. C6-C7: Mild loss of disc height and disc signal are seen. Moderate disc osteophyte complex is seen. Mild to moderate bilateral facet hypertrophy is seen. There is moderate right-sided and moderate to severe left-sided neuroforaminal narrowing seen. Mild central canal narrowing is seen. C7-T1: No significant abnormality is seen. IMPRESSION: Multiple levels of cervical spine degenerative change are seen, which are most prominent at the C6-C7 level. Reviewed by: Ronnie Desir MD on 05/02/2020 10:02 AM MILES Approved by: Ronnie Desir MD on 05/02/2020 10:02 AM MILES Station ID: [id number]
== END 2020-05-02 09:00 | disposition home or self-care (01) ==
LOC: DI 08:59
PROVIDERS: ATTEND Nurse Practitioner Family
DX: M47.812 Spondylosis without myelopathy or radiculopathy, cervical region (principal)
CPT/HCPCS: 72141